=== PATIENT | female | born 1990 | race Hispanic/Latino ===

== ENCOUNTER 2017-07-17 11:28 | Emergency (ER) | payer OTHER | END 2017-07-17 12:05 | disposition home or self-care (01) | LOC: EDH 11:28 | DX: M54.5 Low back pain (principal) | CPT/HCPCS: 99281 ==

== ENCOUNTER 2019-10-15 04:01 | Inpatient (IN) | payer OTHER, MEDICAID ==
[~2019-10-15] VITALS: Ht 160 cm; Wt 79.8 kg
[2019-10-15] MEDS ORDERED: LACTATED RINGERS 1000ML 1,000 ML IV PRN (04:05)
[2019-10-15] MEDS ORDERED: OXYTOCIN-LR 20 UNITS/1000 ML 1,000 ML IV SCH ×2 (04:15→09:45)
[2019-10-15] MEDS ORDERED: OXYTOCIN 10 USP UNITS/ML 20 UNIT in LACTATED RINGERS 1000ML 1,000 ML IV SCH (04:15)
[2019-10-15 04:54] LABS: APPEARANCE,URINE Clear (CLEAR); BILIRUBIN,URINE Negative (NEGATIVE); COLOR,URINE Yellow (YELLOW); GLUCOSE, URINE (UA) Negative (NEGATIVE); KETONES,URINE Negative (NEGATIVE); LEUKOCYTE ESTERASE ,URINE Moderate (NEGATIVE); NITRATE,URINE Negative (NEGATIVE); OCCULT BLOOD,URINE Negative (NEGATIVE); PH,URINE 6.5 (5.0-8.0); PROTEIN,URINE Negative (NEGATIVE)
[2019-10-15 04:59] LABS: MEAN CORPUSCULAR HEMOGLOBIN 30.1 pg (27.0-33.0); MEAN CORPUSCULAR HGB CONC 28.9 g/dL (32.0-36.0); MEAN CORPUSCULAR VOLUME 104.1 fL (79-99); PLATELET COUNT (AUTO) 111 K/uL (130-400); RED BLOOD CELL COUNT(AUTO) 3.65 MIL/uL (4.00-5.50); RED CELL DISTRIBUTION WIDTH 13.8 % (11.0-15.5); WHITE BLOOD COUNT (AUTO) 7.4 K/uL (4.8-10.8)
[2019-10-15 05:00] VITALS: BP 106/64
[2019-10-15 05:14] LABS: BACTERIA,URINE Rare /HPF (None Seen); RBC,URINE None Seen /HPF (0-1); SQUAMOUS EPITHELIAL CELL,UR Few /HPF (0-2)
[2019-10-15] MEDS ORDERED: MEPERIDINE-PF 25 MG/ML SYG ONE (07:25)
[2019-10-15] MEDS ORDERED: PROMETHAZINE HCL 25 MG/ML 1ML AMPULE IM SCH (07:30)
[2019-10-15] MEDS ORDERED: MEPERIDINE-PF 25 MG/ML SYG IVP SCH (07:30)
[2019-10-15] MEDS ORDERED: ACETAMINOPHEN-CODEINE 300/30MG TAB PO PRN (09:45)
[2019-10-15] MEDS ORDERED: MEASLES/MUMPS/RUBELLA VACCINE, LIVE 0.5 ML/VIAL SQ PRN (09:45)
[2019-10-15] MEDS ORDERED: BENZOCAINE/LANOLIN/ALOE VERA 60 ML AEROSOL TP PRN (09:45)
[2019-10-15] MEDS ORDERED: ACETAMINOPHEN 325 MG TAB PO PRN (09:45)
[2019-10-15] MEDS ORDERED: LANOLIN 30GM OINTMENT TP PRN (09:45)
[2019-10-15] MEDS ORDERED: DIPH,PERTUSS(ACELL),TET VAC/PF 0.5 ML VIAL IM PRN (09:45)
[2019-10-15] MEDS ORDERED: WITCH HAZEL 1 PAD TP PRN (09:45)
[2019-10-15] MEDS ORDERED: IBUPROFEN 600 MG TABLET PO PRN (09:45)
[2019-10-15 13:26] VITALS: BP 97/62
[2019-10-15 16:38] VITALS: BP 118/84
--- NOTE | 2019-10-15 17:30 | NUR ---
PATIENT HAD PIV REMOVED AND IV SITE WNL. DENIES ANY DIZZINESS ON AMBULATION.
--- NOTE | 2019-10-15 19:10 | NUR ---
BEDSIDE REPORT GIVEN TO ELZA MARTÍNEZ AND PATIENT CARE TRANSFERED AT THIS TIME.
[2019-10-15] MEDS ORDERED: PREN-68 PO (20:14)
[2019-10-15 20:26] VITALS: BP 109/60
[2019-10-15] MEDS: DOCUSATE SODIUM 100 MG CAP PO SCH (21:27)
[2019-10-16 00:05] VITALS: BP 112/69
[2019-10-16 04:00] VITALS: BP 83/48
[2019-10-16 05:40] LABS: HEMATOCRIT 29.5 % (36-48); MEAN CORPUSCULAR HEMOGLOBIN 30.9 pg (27.0-33.0); MEAN CORPUSCULAR HGB CONC 32.9 g/dL (32.0-36.0); MEAN CORPUSCULAR VOLUME 93.9 fL (79-99); PLATELET COUNT (AUTO) 222 K/uL (130-400); RED BLOOD CELL COUNT(AUTO) 3.14 MIL/uL (4.00-5.50); RED CELL DISTRIBUTION WIDTH 13.7 % (11.0-15.5); WHITE BLOOD COUNT (AUTO) 10.8 K/uL (4.8-10.8)
[2019-10-16 07:50] VITALS: BP 110/71
--- NOTE | 2019-10-16 07:55 | NUR ---
PATIENT ASSESSED AND HAS REMAINED STABLE. MEDICATED WITH MOTRIN FOR MILD DISCOMFORT.
[2019-10-16] MEDS: DOCUSATE SODIUM 100 MG CAP PO SCH (08:00)
[2019-10-16 08:09] LABS: HEPATITIS Bs ANTIGEN SCREEN P Negative (Negative)
--- NOTE | 2019-10-16 10:15 | NUR ---
DR. STOCKTON ROUNDED ON PATIENT AND DISCHARGED PT TO HOME. WAS GIVEN FOLLOW UP APPOINTMENT WITH DR. STILL' OFFICE ON 11/04/2019 AT 9AM WITH CALI GUERRERO NP., PATIENT STABLE.
[2019-10-16 12:00] VITALS: BP 127/83
--- NOTE | 2019-10-16 12:15 | NUR ---
PATIENT WAS GIVEN SCRIPT FOR MOTRIN AND KEFLEX AND WAS INSTRUCTED ON USE AND DOSAGES OF MED. PATIENT STABLE AND DENIES PAIN. VERBALIZED UNDERSTANDING INSTRUCTIONS GIVEN.
--- NOTE | 2019-10-16 12:30 | NUR ---
PATIENT WAS TAKEN VIA W/C CARRYING BABY IN [place] AND WAS DISCHARGED TO HER SIGNIFICANT OTHER IN STABLE CONDITION.
== END 2019-10-16 12:30 | disposition home or self-care (01) | DRG 807 ==
LOC: LDH 04:01 → WSH 13:25
PROVIDERS: ADMIT Obstetrics & Gynecology; ATTEND Obstetrics & Gynecology
PROC: 10E0XZZ Delivery of Products of Conception, External Approach (ICD-10-PCS; principal; 2019-10-15)
PROC: 3E0234Z Introduction of Serum, Toxoid and Vaccine into Muscle, Percutaneous Approach (ICD-10-PCS; 2019-10-15)
PROC: 10907ZC Drainage of Amniotic Fluid, Therapeutic from Products of Conception, Via Natural or Artificial Opening (ICD-10-PCS; 2019-10-15)
DX: O80 Encounter for full-term uncomplicated delivery (principal); Z37.0 Single live birth; Z23 Encounter for immunization; Z3A.39 39 weeks gestation of pregnancy
CPT/HCPCS: 36415; 81001; 85027; 86592; 86850; 86900; 86901; 87088; 87340; A4351; A4606; G0378; J2175; J2590; J7120

== ENCOUNTER 2022-08-19 17:06 | Emergency (ER) | payer MEDICAID, OTHER ==
[~2022-08-19] VITALS: Ht 160 cm; Wt 86.2 kg
[~2022-08-19 17:06] MED LIST: PREN-68 PO
[2022-08-19 17:10] VITALS: BP 129/75
[2022-08-19] MEDS ORDERED: TETRACAINE HCL 0.5% 4 ML OPHTH SOLN ONE (17:20)
[2022-08-19] MEDS ORDERED: FLUORESCEIN SODIUM 1 STRIP STRIP ONE (17:20)
[2022-08-19] MEDS ORDERED: TETRACAINE HCL 0.5% 4 ML OPHTH SOLN OP SCH (17:30)
[2022-08-19] MEDS ORDERED: FLUORESCEIN SODIUM 1 STRIP STRIP OP SCH (17:30)
[2022-08-19] MEDS ORDERED: KETO5DRO82 OP (18:07)
[2022-08-19] MEDS ORDERED: POLY10DR22 OP (18:07)
== END 2022-08-19 18:41 | disposition home or self-care (01) ==
LOC: EDH 17:06
DX: H18.823 Corneal disorder due to contact lens, bilateral (principal)

== ENCOUNTER 2023-12-10 21:36 | Emergency (ER) | payer MEDICAID, OTHER ==
[~2023-12-10] VITALS: Ht 157.5 cm; Wt 87.1 kg
[~2023-12-10 21:36] MED LIST changes: +KETO5DRO82 OP; +POLY10DR22 OP
[2023-12-10] MEDS ORDERED: MORPHINE 4 MG SYG IVP ONE (22:30)
[2023-12-10 22:43] LABS: BASOPHILS # (AUTO) 0.06 K/uL (0.00-0.20); BASOPHILS % (AUTO) 0.5 % (0.0-5.0); EOSINOPHILS # (AUTO) 0.23 K/uL (0.00-0.70); EOSINOPHILS % (AUTO) 1.8 % (0.0-8.0); HEMATOCRIT 41.8 % (36-48); IMMATURE GRANULOCYTE ABSOLUTE 0.09 K/uL (0-1); LYMPHOCYTES # (AUTO) 1.4 K/uL (1.0-4.8); LYMPHOCYTES % (AUTO) 10.7 % (21.0-51.0); MEAN CORPUSCULAR HEMOGLOBIN 31.7 pg (27.0-33.0); MEAN CORPUSCULAR HGB CONC 33.3 g/dL (32.0-36.0); MEAN CORPUSCULAR VOLUME 95.4 fL (79-99); MONOCYTES # (AUTO) 0.8 K/uL (0.1-1.0); MONOCYTES % (AUTO) 5.8 % (3.0-13.0); NEUTROPHILS # (AUTO) 10.4 K/uL (1.8-7.7); NEUTROPHILS % (AUTO) 80.5 % (40.0-77.0); PLATELET COUNT (AUTO) 269 K/uL (130-400); RED BLOOD CELL COUNT(AUTO) 4.38 MIL/uL (4.00-5.50); RED CELL DISTRIBUTION WIDTH 12.7 % (11.0-15.5)
[2023-12-10 22:55] LABS: CREATININE 0.7 mg/dL (0.5-1.0); POTASSIUM 3.7 mmol/L (3.5-5.1)
[2023-12-10 23:00] LABS: ALBUMIN 3.8 g/dL (3.5-5.0); BILIRUBIN,TOTAL 0.4 mg/dL (0.2-1.0); TOTAL PROTEIN, SERUM 7.4 g/dL (6.0-8.3)
[2023-12-10 23:40] LABS: APPEARANCE,URINE CLEAR (CLEAR); BILIRUBIN,URINE NEGATIVE (NEGATIVE); COLOR,URINE LIGHT-YELLOW (YELLOW); GLUCOSE, URINE (UA) NEGATIVE (NEGATIVE); KETONES,URINE NEGATIVE (NEGATIVE); LEUKOCYTE ESTERASE ,URINE NEGATIVE Leu/uL (NEGATIVE); NITRATE,URINE NEGATIVE (NEGATIVE); OCCULT BLOOD,URINE SMALL (NEGATIVE); PROTEIN,URINE NEGATIVE (NEGATIVE); UROBILINOGEN,URINE 0.2 mg/dL (0.2-1.0)
[2023-12-10 23:43] LABS: ADD UA MICROSCOPIC YES
[2023-12-10] MEDS: 0.9%NACL 1000ML 1,000 ML IV ONE (23:52)
[2023-12-10] MEDS: ONDANSETRON 4MG INJ IVP ONE (23:52)
[2023-12-10 23:57] LABS: RBC,URINE 0-1 /HPF (0-1); SQUAMOUS EPITHELIAL CELL,UR RARE /HPF (0-2)
[2023-12-10] MEDS: MORPHINE 4 MG SYG IVP ONE (23:57)
[2023-12-11] MEDS ORDERED: IBUP-2070 PO (01:17)
[2023-12-11] MEDS ORDERED: CYCL10TA16 PO (01:17)
[2023-12-11] MEDS: KETOROLAC 30MG VIAL (30MG/ML) IVP ONE (01:48)
[2023-12-11 01:53] VITALS: BP 110/62; PULSE 78; RESP 18; O2SAT 100
== END 2023-12-11 01:54 | disposition home or self-care (01) ==
LOC: EDH 21:36
DX: S39.012A Strain of muscle, fascia and tendon of lower back, initial encounter (principal); R11.10 Vomiting, unspecified; X58.XXXA Exposure to other specified factors, initial encounter; Y93.89 Activity, other specified; Y92.89 Other specified places as the place of occurrence of the external cause; Y99.8 Other external cause status
CPT/HCPCS: 99284; 74176; 96374; 71045; 96375 ×2; 80053; 84703; 83690; 85025; 81001; 36415; J7030; J2405; J2270; J1885

== ENCOUNTER 2024-03-09 21:37 | Emergency (ER) | payer SELFPAY ==
[~2024-03-09] VITALS: Ht 160 cm; Wt 85.3 kg
[~2024-03-09 21:37] MED LIST changes: +CYCL10TA16 PO; +IBUP-2070 PO
[2024-03-09] MEDS: AMOX/CLAV 875/125MG TAB PO ONE (23:42)
[2024-03-09] MEDS: HYDROcodone/APAP 5/325 1 TAB TABLET PO ONE (23:42)
[2024-03-09 23:49] VITALS: BP 140/76; PULSE 60; RESP 18; O2SAT 98
[2024-03-10] MEDS ORDERED: AMOX1TAB16 PO
== END 2024-03-10 00:19 | disposition home or self-care (01) ==
LOC: EDH 21:37
DX: K04.7 Periapical abscess without sinus (principal); Z79.899 Other long term (current) drug therapy